=== PATIENT | female | born 1955 | race Caucasian/White ===

== ENCOUNTER 2024-08-05 05:15 | Observation (INO) ==
--- NOTE | 2024-06-20 08:43 | PAT Medication Instructions ---
Medication Instructions Date of Service June 20, 2024 Home Medications gabapentin 300 mg capsule 300 mg PO BID methocarbamol 500 mg tablet 500 mg PO BID topiramate 25 mg tablet 25 mg PO QAM topiramate 50 mg tablet 100 mg PO QPM esomeprazole magnesium 20 mg capsule,delayed release (Nexium) 20 mg PO QAM paroxetine HCl 37.5 mg tablet,extended release 24 hr (Paxil CR) 37.5 mg PO QAM Take morning of surgery With a small sip of water, OTHERWISE NOTHING TO EAT OR DRINK AFTER MIDNIGHT: gabapentin 300 mg capsule 300 mg PO BID methocarbamol 500 mg tablet 500 mg PO BID topiramate 25 mg tablet 25 mg PO QAM esomeprazole magnesium 20 mg capsule,delayed release (Nexium) 20 mg PO QAM paroxetine HCl 37.5 mg tablet,extended release 24 hr (Paxil CR) 37.5 mg PO QAM Take evening before surgery gabapentin 300 mg capsule 300 mg PO BID methocarbamol 500 mg tablet 500 mg PO BID topiramate 50 mg tablet 100 mg PO QPM Other Notes If you have any questions please call us at [phone] or [phone] or [phone] or [phone]
--- NOTE | 2024-07-01 09:43 | Anesthesiology Consultation ---
Date of Service July 01, 2024 Assessment & Plan (1) Encounter for pre-operative examination: - Infectious disease screening: Per assessment on 07/01/24: No known recent infectious disease contacts or current infectious disease symptoms. - Outpatient joint assessment: Pt currently scheduled for inpatient pathway. If surgeon requests review for outpatient joint pathway, patient is not recommended candidate for outpatient joint program from anesthesia standpoint based on available information. - Chiari Malformation s/p decompression 2014: Last seen by neurology 06/07/24- per visit, "She underwent a brain MRI that showed evidence of a Chiari malformation that prompted decompression in 2014.. Scheduled for hip surgery in July.. Assessment/plan.. Migraine equivalent and persistent posturalperceptual dizziness: Status quo with balance issues. Currently managed with Topamax.. Lumbar radiculopathy.. Currently managed with gabapentin.. During today's visit, Ms. Mendenhall underwent a standard screen for her risk of fall for which she tested negative.. Return in 5 months" - Most recent 05/2024 neurology office visit note received and reviewed with Dr. Burroughs. He requests comment from neurology regarding preop recommendations. Note written to neurology regarding neuraxial anesthesia recommendations- Awaiting response (Dr. Hyatt/[facility]). Patient otherwise acceptable risk for surgery. Chart Review Chart Review: Patient seen in Pre Admission Testing Teaching & Discussion Pre-Anesthesia Teaching/Discussion Notes: Instructed NPO after midnight before surgery,except medications with 15 cc of water. Medication instructions provided according to the PAT guidelines. History Surgery Operation Date: 08/05/24 09:15 Proposed Procedures p Right Anterior Total Hip Arthroplasty - Josesito Burnett DO Height/Weight Height: 5 ft 7 in Weight: 79.1 kg Allergies Allergy/AdvReac Type Severity Reaction Status Date / Time No Known Allergies Allergy Verified 06/18/24 12:40 Medications Home Medications Medication Instructions Recorded Confirmed Last Taken gabapentin 300 mg capsule 300 mg PO BID 05/21/24 06/18/24 Unknown methocarbamol 500 mg tablet 500 mg PO BID 05/21/24 06/18/24 Unknown topiramate 25 mg tablet 25 mg PO QAM 05/21/24 06/18/24 Unknown topiramate 50 mg tablet 100 mg PO QPM 05/21/24 06/18/24 Unknown esomeprazole magnesium 20 mg 20 mg PO QAM 06/18/24 06/18/24 Unknown capsule,delayed release (Nexium) paroxetine HCl 37.5 mg 37.5 mg PO QAM 06/18/24 06/18/24 Unknown tablet,extended release 24 hr (Paxil CR) Past Medical History Medical History (Updated 07/02/24 @ 08:13 by Jailene Carrion) Acid reflux History of Chiari malformation s/p decompression (2014) Follows with [facility] Hx of non-Hodgkin's lymphoma 2012 - s/p chemo completion Dr Hernandez - discharged from oncology Leaky heart valve Echo 2020: Mild MR/TR/AR Osteoarthritis Exercise / Class Metabolic Activity II 4-5 Yardwork/Stairs/Walk up hill (one FS: No CP, no SOB) Past Surgical History Surgical History History of carpal tunnel surgery Right Hx of brain surgery Chiari Malformation decompression (2014) Hx of section Hx of colonoscopy Hx of esophagogastroduodenoscopy PONV (postoperative nausea and vomiting) Past Anesthesia History No Hx of Anesthesia Complications and No Family Hx of Anesthesia Complications History of PONV History of PONV (Single episode) and Hx of Motion Sickness (Single episode (with initial cruise)) Social History Smoking Status: Never smoker Do You Dip or Chew Tobacco: No Hx Alcohol Use: Yes Alcohol type: wine alcohol intake frequency: a few times a week Hx Substance Use: No substance use type: does not use Review of Systems Patient denies chest pain, shortness of breath, dyspnea on exertion, fever, chills, cough, wheezing, palpitations. Physical Exam Vital Signs BP 122/70 P 70 TEMP 98.2 SP02 95%RA RESP 18 Physical Mildly decreased cervical extension range of motion. Full TMJ range of motion. TMD 3 finger breaths Mallampati Score II Dentition: intact Lungs: clear throughout to auscultation Cardiac: regular rate and rhythm, no murmurs noted Spine: normal Carotid arteries: negative bruit Extremities: no LE edema Lab Results Anesthesia Preop Results Results Anesthesia Widget: WBC 9.87 K/ul (4.8-10.8) 07/01/24 Hgb 13.3 g/dl (12.0-16.0) 07/01/24 Hct 39.3 % (37.0-47.0) 07/01/24 Plt 277 K/uL (130-400) 07/01/24 Na 141 mmol/L (136-145) 07/01/24 K 4.5 mmol/L (3.5-5.1) 07/01/24 Cl 109 mmol/L (98-107) H 07/01/24 CO2 27 mmol/L (21-32) 07/01/24 BUN 19 mg/dl (6-23) 07/01/24 Creat 0.90 mg/dl (0.6-1.2) 07/01/24 Glucose Level 128 mg/dl (70-99(Fasting)) H 07/01/24 PT 10.8 Seconds (9.0-12.0) 07/01/24 PTT 26 Seconds (21-31) 07/01/24 INR 1.0 (0.9-1.1) 07/01/24 Blood Type O Positive 07/01/24 Antibody Screen NEGATIVE 07/01/24 Testing Electrocardiogram Date: 07/01/24 NSR at 68bpm. "Normal ECG" Chest X-Ray Date: 07/01/24 FINDINGS: PA and lateral chest radiographs are obtained. No prior studies are available for comparison at the time of dictation. Cardiomediastinal silhouette is unremarkable noting atherosclerotic calcification of the thoracic aorta. The lungs and pleural spaces are clear. There is no pneumothorax. The skeletal structures are osteopenic. The bony thorax appears intact. Degenerative change is noted in the thoracic spine. IMPRESSION: No active disease in the chest. Echocardiogram Date: 09/28/21 EF 55-60%. Mild RAD/LAD. Mild MR/TR/AR.
--- NOTE | 2024-08-01 09:26 | History & Physical Report ---
Date of Service August 01, 2024 Assessment & Plan (1) Osteoarthritis of right hip: We will proceed with a right anterior total of arthroplasty. Postoperatively she will be started on aspirin for DVT prophylaxis and kept overnight in the hospital for postop medical management. She plans to have the hospital set up home health for discharge. History of Present Illness Chief Complaint: Osteoarthritis of the right hip. Primary Care Provider: NO PCP Carie is a pleasant 68-year-old female who has been dealing with chronic increasing right hip and groin pain. She has been seen by another provider. She has had x-rays at an outside institution that showed advanced arthritis of the right hip. After failing conservative treatment, she has elected proceed w ith a right anterior total of arthroplasty. Allergies Allergy/AdvReac Type Severity Reaction Status Date / Time No Known Allergies Allergy Verified 06/18/24 12:40 Home Medications Medication Instructions Recorded Confirmed Type gabapentin 300 mg capsule 300 mg PO BID 05/21/24 06/18/24 History methocarbamol 500 mg tablet 500 mg PO BID 05/21/24 06/18/24 History topiramate 25 mg tablet 25 mg PO QAM 05/21/24 06/18/24 History topiramate 50 mg tablet 100 mg PO QPM 05/21/24 06/18/24 History esomeprazole magnesium 20 mg 20 mg PO QAM 06/18/24 06/18/24 History capsule,delayed release (Nexium) paroxetine HCl 37.5 mg 37.5 mg PO QAM 06/18/24 06/18/24 History tablet,extended release 24 hr (Paxil CR) Past Med/Surg History Problem List Osteoarthritis of right hip Medical History History of Chiari malformation s/p decompression (2014) Follows [facility] Acid reflux Hx of non-Hodgkin's lymphoma 2012 - s/p chemo completion Dr Hernandez - discharged from oncology Leaky heart valve Echo 2020: Mild MR/TR/AR Osteoarthritis Surgical History PONV (postoperative nausea and vomiting) Hx of section History of carpal tunnel surgery Right Hx of brain surgery Chiari Malformation decompression (2014) Hx of esophagogastroduodenoscopy Hx of colonoscopy Social History Smoking Status: Never smoker Second Hand Exposure: No; Do You Dip or Chew Tobacco: No; Tobacco Cessation Education Requested by Patient: No Hx Alcohol Use: Yes Alcohol type: wine Hx Substance Use: No Preferred Language: Tamazight Communication Ability: Effective Double Back Operator Required: No Beliefs That Will Affect Care: None Current Living Situation: Alone Other Information That Helps Us Care for You: No Feels Safe at Home: Yes Safety Concerns: Feels Safe At This Time Assistive Devices: Glasses Review of Systems All systems reviewed & are unremarkable except as noted in HPI & below. Physical Exam On physical examination the right hip, she has decreased range of motion. She has pain with internal/external rotation. Most of her pain is located in the groin.. Constitutional WD/WN, vitals as above Eyes PERRL, conjunctivae normal, anicteric sclerae ENMT external ear and nose normal, oropharynx normal Neck trachea midline, no thyromegaly Respiratory normal respiratory effort Cardiovascular RRR, no murmur, no edema Gastrointestinal (Abdomen) normal bowel sounds, soft, nontender, no hepatosplenomegaly Psychiatric A+Ox3, euthymic affect Results & Data Results & Data Laboratory Results . Diagnostic Findings X-rays of the right hip show advanced osteoarthritis with joint space narrowing, osteophyte formation, and [id number] tubulation. PG Care Time/CCT Total # of Minutes Spent Total Time Spent with Patient: Total time spent is greater than 50% in coordination of care (as documented) at patient's floor/unit and/or counseling patient: Coding Level of Care Code None Diagnoses Osteoarthritis of right hip M16.11
[2024-08-05] MEDS: LR 500ML BOLUS, THEN 15ML/HR IV SCH ×2 (06:06)
[2024-08-05] MEDS: LR 60ML/HR IV SCH (06:06)
[2024-08-05] MEDS: GABAPENTIN 300 MG CAP PO SCH ×2 (06:08→10:44)
[2024-08-05] MEDS: dexAMETHasone**PF** 10 MG/ML VIAL IV SCH (06:09)
[2024-08-05] MEDS: ACETAMINOPHEN 500 MG TAB PO SCH ×2 (06:09→13:45)
[2024-08-05] MEDS: FAMOTIDINE 20 MG TAB PO SCH (06:09)
[2024-08-05] MEDS ORDERED: BUPIVACAINE 0.5 % 5 MG/1 ML PF 10ML VIAL ONE (06:13)
[2024-08-05] MEDS ORDERED: ROPIVACAINE 0.5% 5 MG/ML 30 ML VIAL ONE (06:16)
[2024-08-05] MEDS ORDERED: MIDAZOLAM HCL 1 MG/ML 2ML VIAL ONE ×2 (06:36)
[2024-08-05] MEDS ORDERED: fentaNYL citrate PF 100 MCG/2 ML VIAL ONE (06:36)
--- NOTE | 2024-08-05 06:38 | History & Physical Bridge Note ---
Date of Service August 05, 2024 History & Physical Bridge Note I have examined the patient, reviewed the History & Physical and in the interval since the performance of the History & Physical I have noted the following changes of clinical significance: no changes noted
[2024-08-05] MEDS ORDERED: KETOROLAC 30 MG/ML VIAL IV PRN (06:41)
[2024-08-05] MEDS ORDERED: ONDANSETRON INJ 2 MG/ML 2 ML VIAL IV PRN ×2 (06:41→09:40)
[2024-08-05] MEDS ORDERED: HYDROmorphone INJ 1 MG/ML SYRINGE IV PRN (06:41)
[2024-08-05] MEDS ORDERED: ATROPINE SULFATE 0.1 MG/ML 10ML SYR IV PRN (06:41)
[2024-08-05] MEDS ORDERED: ePHEDrine sulfate 50 MG/ML AMP IV PRN (06:41)
[2024-08-05] MEDS: TRANEXAMIC ACID 1,000 MG **IV Pre-op IV SCH (06:45)
[2024-08-05] MEDS: ceFAZolin 2000MG 2,000 MG/15 ML SYR IV SCH ×2 (07:02→13:45)
[2024-08-05] MEDS ORDERED: PROPOFOL IV EMULSION 10 MG/ML 20 ML VIAL IV ONE (07:32)
[2024-08-05] MEDS: ORTHO JOINT ANESTHETIC ONE (07:42)
[2024-08-05] MEDS: ROPIV 0.5% 246mg, Ketorolac 30mg, EPINEPHrine 0.5mg in NSS INFIL SCH (07:42)
[2024-08-05] MEDS ORDERED: ONDANSETRON INJ 2 MG/ML 2 ML VIAL ONE (07:53)
[2024-08-05] MEDS: TRANEXAMIC ACID 1,000 MG **IV Intra-op IV SCH (07:59)
--- NOTE | 2024-08-05 08:03 | Operative Report ---
PG Post Operative Report Pre & Post Diagnosis Operation Date: 08/05/24 07:00 Pre-Op Diagnosis: Osteoarthritis of right hip Post-Op Diagnosis: Osteoarthritis of right hip I identified the patient and participated in the time-out.: Yes Procedure Operation Date: 08/05/24 07:00 Actual Procedures p Right Anterior Total Hip Arthroplasty(Right) - Josesito Burnett DO Surgeon Josesito Burnett DO Sales Representative [employer] Josesito Cardoso PA-C Estimated Blood Loss 150 Findings Consistent with Post-Op Diagnosis Specimens Right femoral head Description of Procedure Implants used I used a ZimmerBiomet total hip arthroplasty system with a size 3 standard offset Avenir Complete stem, a 50 mm G7 cup with a 25mm screw, an E1 polyethylene liner, a 36 mm ceramic head with a 0 neck. Carie arrived at the hospital for the above procedure. She was seen in the preoperative holding area and the operative extremity was identified and signed. She was given a spinal anesthetic, a preoperative antibiotic, and TXA. She was then taken back to the operating room and laid on the table in the supine position. She was given basic sedation. The operative leg was secured to a Puristst leg positioner. The hip was then prepped and draped in sterile fashion. A timeout was done and the patient and the operative extremity was properly identified. An anterior approach was used. Dissection was taken down through the fascia and the tensor muscle belly was retracted laterally and the rectus was retracted medially. The circumflex vessels were identified and ligated. The capsule was then incised and tagged for later repair. The femoral neck was then cut and the femoral head was removed. The acetabulum was exposed. Time was spent doing a complete circumferential labral release. Sequential reaming of the acetabulum up to a size 49 reamer was done. Final reamings were done under fluoroscopy to ensure appropriate version. A Biomet 50 mm G7 cup was then impacted into place. A single 25 mm screw was placed. The E1 polyethylene liner was then snapped into place. Surrounding soft tissues were then injected with 100 cc of an orthopedic pain control cocktail. The proximal femur was then exposed. Sequential broaching up to a size 3 broach was done. Off that broach a size 36 head with a 0 neck was trialed. The hip was reduced and fluoroscopic images showed anatomic alignment of the implants in acceptable length. The broach was removed. The final size 3 standard offset Avenir Complete stem was then impacted into place. A ceramic 36 mm head with a 0 neck was then impacted onto the stem and the hip was reduced. Final fluoroscopic images showed anatomic alignment of the hip. The capsule was then closed with #1 Vicryl suture. A dilute betadyne lavage was then done for 3 minutes. The joint was then irrigated with normal saline solution. The fascia was closed with #1 PDS suture. Skin was closed with 2-0 Vicryl, tamela, and a Silverlon dressing. She was then transferred to a hospital bed and taken to the post anesthesia care unit in stable condition. She tolerated the procedure well. Josesito Cardoso PA-C, was present for the entire procedure. He was critical for patient positioning, prepping, draping, retraction exposure, wound closure and application of sterile dressing. I attest to the content of the Intraoperative Record and any orders documented therein. Any exceptions are noted below.
--- NOTE | 2024-08-05 08:20 | Fluoroscopy Report ---
FL hip RT 1V CLINICAL HISTORY: RIGHT ANTERIOR HIP COMPARISON STUDY: Right hip radiographs February 20, 2024. FLUOROSCOPY TIME: 13 seconds. Ka, r: 1.8022 mGy FLUOROSCOPIC IMAGES: 1 FINDINGS: Fluoroscopy was provided during anterior total right hip arthroplasty. Alignment is anatomi c. Hardware is intact. No fractures are identified by fluoroscopy. There is an acetabular screw. IMPRESSION: Fluoroscopy provided during total anterior right hip arthroplasty. ACT 112: Negative or not required by law. Electronically signed by: Freddie Prasad M.D. 08/05/2024 8:19 AM
--- NOTE | 2024-08-05 08:48 | XRay Report ---
XR hip 1V RT w pelvis HISTORY: 68 years-old Female IN PACU - Post Surgical COMPARISON: Fluoroscopic images of same day TECHNIQUE: AP view of the pelvis with crosstable lateral view of the right hip FINDINGS: Moderate left hip osteoarthritis. Satisfactory alignment of the right hip arthroplasty. Lateral skin tamela and expected postoperative soft tissue swelling and deep tissue air. No acute fracture or une xpected opaque foreign body. IMPRESSION: Right hip arthroplasty with expected postoperative changes. ACT 112: Negative or not required by law. The above report was generated using voice recognition software. It may contain grammatical, syntax o r spelling errors. Electronically signed by: Lauro Borrego M.D. 08/05/2024 8:46 AM
[2024-08-05] MEDS ORDERED: MAGNESIUM HYDROXIDE SUSP 30 ML UDC PO PRN (09:40)
[2024-08-05] MEDS ORDERED: METOCLOPRAMIDE HCL INJ 5 MG/ML 2 ML VIAL IV PRN (09:40)
[2024-08-05] MEDS ORDERED: NALOXONE HCL 0.4 MG/1 ML VIAL/CARP IV PRN (09:40)
[2024-08-05] MEDS ORDERED: HYDROmorphone INJ 0.5 MG/0.5 ML SYR IV PRN (09:40)
[2024-08-05] MEDS ORDERED: bisacodyL 10 MG SUPP PR PRN (09:40)
--- NOTE | 2024-08-05 09:55 | Anesthesiology Progress Note ---
Date of Service August 05, 2024 Anesthesia Post Procedure Vital Signs Vital Signs: Temp Pulse Resp BP Pulse Ox O2 Del Method O2 Flow Rate 08/05/24 09:40 36.4 C L 74 14 159/87 H 97 Room Air 08/05/24 09:25 71 13 151/87 H 93 Room Air 0 08/05/24 09:15 36.4 C L 72 13 149/77 H 94 Room Air 0 08/05/24 09:05 72 16 144/84 H 97 Room Air 0 08/05/24 08:55 72 14 154/79 H 95 Oxymask 2 08/05/24 08:45 73 19 141/85 H 97 Oxymask 4 08/05/24 08:35 73 21 130/69 98 Oxymask 6 08/05/24 08:25 36.2 C L 70 13 113/69 98 Oxymask 6 08/05/24 05:40 36.5 C 74 16 154/85 H 96 Room Air Pain Intensity Right Hip: Pain Intensity: 1 Transfer of Care Handoff Completed per policy Notes Mental Status: alert / awake / arousable Patient Amnestic to Procedure: Yes Nausea / Vomiting: adequately controlled Pain: adequately controlled Airway Patency, RR, SpO2: stable & adequate BP & HR: stable & adequate Hydration State: stable & adequate Neuraxial Anesthesia: was administered and sensory block is resolving Anesthetic Complications: no major complications apparent
[2024-08-05] MEDS: ASPIRIN 81 MG ECTAB PO SCH (10:44)
[2024-08-05] MEDS: METHOCARBAMOL 500 MG TABLET PO SCH (10:44)
[2024-08-05] MEDS: MULTIVITAMIN TAB PO SCH (10:44)
[2024-08-05] MEDS: DOCUSATE SODIUM 100 MG CAP PO SCH (10:44)
[2024-08-05] MEDS: KETOROLAC TROMETHAMINE 15 MG/ML VIAL IV SCH (10:45)
[2024-08-05] MEDS: PARoxetine HCl CONTROLLED REL 12.5 MG TABCR PO SCH (10:45)
[2024-08-05] MEDS: TOPIRAMATE 25 MG TAB PO SCH (10:45)
[2024-08-05] MEDS: oxyCODONE HCL IR 5 MG TAB (IMMEDIATE RELEASE) PO PRN (18:45)
[2024-08-05] MEDS: SENNA 8.6 MG TAB PO SCH (20:46)
[2024-08-05] MEDS: TOPIRAMATE 100 MG TAB PO SCH (20:46)
[2024-08-05 23:50] VITALS: O2SAT 94
--- NOTE | 2024-08-06 07:00 | Orthopedic Progress Note ---
Date of Service August 06, 2024 Assessment & Plan (1) Status post right hip replacement: Overall she is doing very well. She is not having much pain in the right hip. She will be seen by physical therapy today for ambulation and range of motion exercises. She is on aspirin for DVT prophylaxis. She can be discharged to home later today. She will follow-up orthopedics in 2 weeks. Cecelia Valencia was seen and examined at bedside this morning. Overall she is doing very well. She is not having much pain in the right hip. She has been up and ambulating to the bathroom. She has no complaints.. Review of Systems All systems reviewed & are unremarkable except as noted in HPI & below. Physical Exam On physical exam of the right hip, the dressing is clean and dry. Her leg is out full extension. She has active dorsiflexion plantarflexion of her right ankle.. Results & Data Results & Data Laboratory Results . Diagnostic Findings Postoperative x-rays of the right hip show the prosthesis to be in anatomic alignment without any evidence of fracture, dislocation, or loosening.. PG Care Time/CCT Total # of Minutes Spent Total Time Spent with Patient: Total time spent is greater than 50% in coordination of care (as documented) at patient's floor/unit and/or counseling patient: Coding Level of Care Code 47304 Post Operative Follow-Up Diagnoses Status post right hip replacement Z96.641
--- NOTE | 2024-08-06 07:02 | Discharge Summary ---
Date of Service August 06, 2024 Admission HPI (Per Admitting) Carie is a pleasant 68-year-old female who has been dealing with chronic increasing right hip and groin pain. She has been seen by another provider. She has had x-rays at an outside institution that showed advanced arthritis of the right hip. After failing conservative treatment, she has elected proceed with a right anterior total of arthroplasty. Admission Exam (Per Admitting) On physical examination the right hip, she has decreased range of motion. She has pain with internal/external rotation. Most of her pain is located in the groin.. Principal Diagnosis Same as "Discharge Diagnosis" noted below under Discharge Instructions. Discharge Exam On physical exam of the right hip, the dressing is clean and dry. Her leg is out full extension. She has active dorsiflexion plantarflexion of her right ankle.. Discharge Data Procedures Performed Operation Date: 08/05/24 07:00 Actual Procedures p Right Anterior Total Hip Arthroplasty(Right) - Josesito Burnett DO Ordered Studies 08/05/24 07:00 FL hip RT 1V Routine Hospital Course (1) Status post right hip replacement: On August 05, 2024 nAnie arrived at [facility] and underwent a right hip replacement without complication. She had a spinal anesthetic. Postoperatively she was started on aspirin for DVT prophylaxis and transferred to the general orthopedic floors. Her hospital course was uneventful. On postop day #1, her vital signs were stable and her pain was well-controlled. She was able to participate well with physical therapy doing ambulation and range of motion exercises. She was then discharged to home. She will follow-up with orthopedics in 2 weeks. PG Care Time/CCT Total # of Minutes Spent Total Time Spent with Patient: Total time spent is greater than 50% in coordination of care (as documented) at patient's floor/unit and/or counseling patient: Discharge Plan Discharge Items Patient Disposition: Home - Self-Care Reason For Visit: POST SURGICAL CARE Discharge Diagnosis: Right hip replacement Activity: Per Instructions section Non-emergency contact: Surgeon Call non-emergency contact if: your wound has increased redness and your wound has increased drainage Follow-up/Referrals: PCP,NO [Primary Care Provider] - Diet: Regular Addtl Attending Provider Instructions: Activity and Therapy Recommendations: * If you are using [facility] then therapy will be provided at your home until they feel you have accomplished all of your goals. * If you are using [facility] then Physical Therapy will be provided until they feel you are ready to start Outpatient Physical Therapy. * If you are not using home therapy then Outpatient Physical Therapy should start about 3-5 days from your day of surgery. Therapy will last about 6-10 weeks * You were shown a series of exercises in the hospital. Do these exercises three times each day including the exercises you were shown in physical therapy. * Get up and walk several times each day.~ For the first four weeks, try not to stand or walk for more than one hour at a time. If you do stand or walk for more than one hour, you will not hurt anything, but your leg will likely swell.~~ * As you feel comfortable, you may change from the walker or crutches to a cane and~then to independent walking. Medications: * Narcotic You will likely be sent home from the hospital with a prescription for the narcotic pain medication that worked best throughout your stay. * Cefadroxil -take the antibiotic twice a day for 10 days to help prevent infection. * Aspirin Most patients will be required to take Aspirin 81mg twice a day for 6 weeks after surgery. This is obtained [id number] and a prescription is not necessary. * Other medications may be prescribed for specific circumstances. If you have any questions, please call the office at . * Resume previous home medications unless otherwise instructed TEDs/Elastic Stockings: The white elastic stockings help limit swelling and prevent blood clots from forming in your legs. The more you wear them, the more they work. Wear them for six weeks. Dressing Care: Leave the Silverlon dressing in place for 7 days. After 7 days you may remove the dressing. If the incision is not draining then you may leave the tamela open to air. If there is a little bit of drainage or if the tamela are getting stuck on your clothing then cover the incision with a dry dressing. The tamela will be removed at your 2 week follow-up appointment. Showering: You may shower with the Silverlon dressing in place. Do not let the shower spray hit the dressing directly. Pat the Silverlon dressing dry. If the dressing becomes wet underneath, then simply remove the dressing. Keep the incision dry until you are 7 days out from the day of surgery. After 7 days you may remove the Silverlon dressing and shower with the tamela exposed. Let soapy water run over the tamela and pat them dry. Do not scrub or soak the incision. Diet: You may resume your previous diet. Things To Watch For: * Drainage from the incision site that occurs more than one week after your surgery. * Increased redness at the incision site. * Fever above 102 degrees Fahrenheit. * Unusual chest pain or shortness of breath. * Call [facility] at with any of the above problems Follow-Up Visit: Follow-up with Dr. Burnett's PA (Josesito Cardoso) 2-3 weeks after your day of surgery. He will remove your tamela and answer any questions. If you have any additional questions or concerns, Dr Burnett is usually in the office at the same time and will be available An appointment was probably scheduled when you signed-up for surgery in the office. If you have any questions call Office Instructions: More detailed instructions as well as Frequently Asked Questions were provided in a folder by our office when you signed-up for surgery. Please review these instructions when you get home. If you have any further questions or concerns, please feel free to call the office at [phone] Pending Studies at Discharge: No Stand-Alone Forms: [facility], Smoking Cessation Medications and DC Order Prescriptions: New oxycodone 5 mg Tablet 5 mg PO Q4H PRN (Reason: pain) Qty: 30 0RF cefadroxil 500 mg capsule 500 mg PO BID 10 Days Qty: 20 0RF aspirin 81 mg Tablet,Delayed Release (Dr/Ec) 81 mg PO BID 42 Days Qty: 0 0RF Continued methocarbamol 500 mg tablet 500 mg PO BID gabapentin 300 mg capsule 300 mg PO BID topiramate 25 mg tablet 25 mg PO QAM topiramate 50 mg tablet 100 mg PO QPM esomeprazole magnesium [Nexium] 20 mg Capsule,Delayed Release(Dr/Ec) 20 mg PO QAM paroxetine HCl [Paxil CR] 37.5 mg tablet extended release 24 hr 37.5 mg PO QAM Discharge Orders: Discharge Order (Routine); Ordered 08/06/24 Ordered By: Josesito Burnett Admission Data Admit Date/Time: 08/05/24 08:23 Attending Provider: Josesito Burnett Admit Provider: Josesito Burnett Primary Care Provider: PCPAPOORVA
[2024-08-06 07:18] VITALS: BP 124/76; PULSE 67; RESP 16; TEMP 98.1
[2024-08-06] MEDS: dexAMETHasone 4 MG TAB PO SCH (07:47)
[2024-08-06] MEDS: INFLUENZA VACC TS2024-25(65y+)/PF (IIV3) 0.5mL Syr IM ONE (09:35)
== END 2024-08-06 10:46 | disposition home health service (06) ==
LOC: 3E 05:15 → ASU 05:15